=== PATIENT | female | born 1965 | race Caucasian/White ===

== ENCOUNTER 2019-11-02 20:32 | Emergency (ER) | payer MEDICAID ==
[~2019-11-02] VITALS: Ht 162.6 cm; Wt 90.7 kg
--- NOTE | 2019-11-02 20:36 | NUR ---
Patient to ER bed 5 to gown for evaluation. Side rails up. Report given to TIFFANIE.
[2019-11-02 20:37] VITALS: BP_SYST 145
--- NOTE | 2019-11-02 20:45 | NUR ---
DR. CARRASCO AT THE BEDSIDE EVALUATING PT
--- NOTE | 2019-11-02 20:50 | NUR ---
PT CAME FROM HOME WITH CO LOWER ABD PAIN WITH SOME CRAMPING IN BILATERAL UPPER LEGS. SHE HAS HAD PAIN X 2DAYS. PT IS DIABETIC, REPORTS THAT HER HOME BLOOD SUGARS HAVE BEEN IN THE 300S. HX OF KIDNEY STONES, TUBAL LIGATION. AAOX4 V/S STABLE. WILL CONTINUE TO MONITOR FOR SAFETY
--- NOTE | 2019-11-02 20:55 | NUR ---
PT ABLE TO VOID, SAMPLE COLLECTED
[2019-11-02] MEDS ORDERED: NACL 0.9% 1,000 ML IV ONE (21:00)
[2019-11-02] MEDS ORDERED: INSULIN REGULAR, HUMAN 10 UNITS/0.1 ML INJ IVP ONE (21:00)
--- NOTE | 2019-11-02 21:00 | NUR ---
# 20 gauge angiocath placed to RAC. Use of asceptic technique. Opsite placed over site. Blood return noted. Blood for lab drawn from site. Flushed with 10 cc of normal saline. No evidence of infiltration noted. Patient tolerated well.
--- NOTE | 2019-11-02 21:02 | NUR ---
PT MEDICATED WITH 10 UNITS OF INSULIN PER MD ORDERS, PT TOLERATED WELL
[2019-11-02 21:38] LABS: BASOPHILS # (AUTO) 0.1 K/uL (0.0-0.2); BASOPHILS % (AUTO) 0.7 % (0.0-2.0); EOSINOPHILS # (AUTO) 0.1 K/uL (0.0-0.4); EOSINOPHILS % (AUTO) 1.2 % (0.0-4.0); HEMATOCRIT 38.7 % (36-48); HEMOGLOBIN 13.3 g/dL (12.0-16.0); LYMPHOCYTES # (AUTO) 2.7 K/uL (1.0-5.5); LYMPHOCYTES % (AUTO) 38.3 % (20.5-51.5); MEAN CORPUSCULAR HEMOGLOBIN 31 pg (27-31); MEAN CORPUSCULAR HGB CONC 34 % (32-36); MEAN CORPUSCULAR VOLUME 89 fL (79.0-98.0); MONOCYTES # (AUTO) 0.4 K/uL (0.0-1.0); NEUTROPHILS # (AUTO) 3.8 K/uL (1.8-7.7); NEUTROPHILS % (AUTO) 53.8 % (40.0-70.0); PLATELET COUNT (AUTO) 251 K/uL (130-430); RED BLOOD CELL COUNT(AUTO) 4.35 MIL/uL (4.2-6.2); RED CELL DISTRIBUTION WIDTH 12.5 % (9.0-15.0)
[2019-11-02 21:39] LABS: ANION GAP 7 (5-15); CALCIUM 9.1 mg/dL (8.4-11.0); CHLORIDE 97 mmol/L (98-107); CREATININE 1.01 mg/dL (0.55-1.30); POTASSIUM 3.9 mmol/L (3.5-5.1); SODIUM SERUM 131 mmol/L (136-145); UREA NITROGEN, BLOOD 24 mg/dL (8-21)
[2019-11-02 21:44] LABS: ALANINE AMINOTRANSFERASE 15 U/L (12-78); ALBUMIN 3.2 g/dL (3.4-4.8); ASPARTATE AMINOTRANSFERASE 14 U/L (10-37); TOTAL BILIRUBIN 0.4 mg/dL (0.0-1.0)
[2019-11-02 21:53] LABS: GFR AFRICAN AMERICAN 74 mL/min (>90); GLUCOSE 470 mg/dL (70-99)
[2019-11-02 22:00] LABS: ACETONE, SERUM NEGATIVE (NEGATIVE)
[2019-11-02] MEDS ORDERED: KETOROLAC TROMETHAMINE 30 MG VIAL IVP ONE (22:45)
[2019-11-02] MEDS ORDERED: cefTRIAXone 1 GM VIAL IM ONE (22:45)
[2019-11-02] MEDS ORDERED: KETOROLAC TROMETHAMINE 30 MG VIAL ONE (22:59)
--- NOTE | 2019-11-02 23:00 | NUR ---
PT MEDICATED WITH ROCEPHIN IM PER MD ORDER, PT TOLERATED WELL
[2019-11-02 23:15] VITALS: BP_SYST 145
--- NOTE | 2019-11-02 23:15 | NUR ---
Patient given written and verbal discharge instructions and verbalizes understanding. ER MD discussed with patient the results and treatment provided. Patient in stable condition. ID arm band removed. IV catheter removed intact and dressing applied, no active bleeding. Rx of NITROFURANTOIN given. Patient educated on pain management and to follow up with PMD. Pain Scale 0/10. Opportunity for questions provided and answered. Medication side effect fact sheet provided.
== END 2019-11-02 23:15 | disposition home or self-care (01) ==
LOC: SED 20:32
DX: E11.65 Type 2 diabetes mellitus with hyperglycemia (principal); N39.0 Urinary tract infection, site not specified; Z88.1 Allergy status to other antibiotic agents; Z88.2 Allergy status to sulfonamides; Z88.6 Allergy status to analgesic agent
CPT/HCPCS: 36415; 80053; 82009; 82962; 85025; 96361; 96372; 96374; 96375; 99284; J0696; J1815; J1885; J7030